=== PATIENT | female | born 1940 | race Caucasian/White ===

== ENCOUNTER 2018-11-11 15:28 | Inpatient (IN) | payer MEDICARE ==
[2018-11-11 16:26] VITALS: BMI 25.1
[2018-11-11] MEDS ORDERED: HYDROcodone/Acetaminophen 10/325 mg Tablet PO PRN (21:07)
[2018-11-11] MEDS ORDERED: Meloxicam 7.5 MG TAB PO PRN (21:11)
[2018-11-11] MEDS ORDERED: Alendronate Sodium 70 mg Tablet PO SCH (21:15)
[2018-11-11] MEDS ORDERED: Ferrous Gluconate 324 MG TAB PO SCH (21:45)
[2018-11-11] MEDS ORDERED: metFORMIN 500 MG TAB PO SCH (21:45)
[2018-11-11] MEDS ORDERED: Aspirin 81 mg Enteric Coated Tablet PO SCH (21:45)
[2018-11-11] MEDS ORDERED: Atorvastatin Calcium 10 MG TAB PO SCH (21:45)
[2018-11-11] MEDS: HYDROcodone/Acetaminophen 10/325 mg Tablet PO PRN (21:58)
[2018-11-12] MEDS ORDERED: Dextrose 5% in Water 1,000 ML IV PRN (00:03)
[2018-11-12] MEDS ORDERED: Dextrose 50% Abboject 50 ML SYRINGE SLOW IVP PRN (00:03)
--- NOTE | 2018-11-12 03:44 | HP ---
PRIMARY CARE PHYSICIAN: Out of town. REASON FOR ADMISSION: For skilled rehabilitation at [facility], status post left total knee arthroplasty. HISTORY OF PRESENT ILLNESS: Ms. Ida Don is a 78-year-old female with a history of degenerative joint disease to the left knee. The patient had presented to have an elective left total knee arthroplasty. Surgical procedure was done by Dr. Loaiza on November 08, 2018. Postoperatively, the patient tolerated the procedure well. She did not have any complications in the hospital. All her home medications were resumed and pain medicine Tylenol with hydrocodone as needed. The patient states she does live by herself at home and due to this reason, she was transferred to [facility] for skilled rehabilitation prior to discharge back to her home. Upon evaluation of the patient today, she denies any nausea, vomiting, chest pain, shortness of breath, or palpitations. The patient states she had a bowel movement today. She states knee pain is present, but well controlled with the pain medicines. The patient plans to discharge back to her home upon discharge in about 2 to 3 weeks. She needs to be in facility to start skilled rehabilitation. PAST MEDICAL HISTORY: Diabetes type 2, hypertension, degenerative joint disease , hyperlipidemia, osteoporosis. SOCIAL HISTORY: The patient denies alcohol use, illicit drug use, or tobacco use. ALLERGIES: NO KNOWN DRUG ALLERGIES. MEDICATIONS: 1. Tylenol 650 q.4 p.r.n. 2. [place] 10/325 one tab q.4 p.r.n. mild pain, 2 tabs q.4 p.r.n. moderate-to- severe pain. 3. Fosamax 70 daily. 4. Aspirin 81 mg p.o. b.i.d. 5. Lipitor 80 at bedtime. 6. Vitamin D3 one tablet daily. 7. Ferrous sulfate 324 p.o. b.i.d. 8. Meloxicam 7.5 p.o. daily p.r.n. pain. 9. Metformin 1000 at bedtime. 10. Dapagliflozin plus metformin 09/999 mg daily. 11. Victoza 1.8 mg daily. REVIEW OF SYSTEMS: GENERAL: The patient denies fever, denies weakness. Complains of gait instability due to recent surgery. HEENT: Denies any dysphagia, or blurry vision. CARDIOVASCULAR: Denies chest pain, shortness of breath, or palpitation. RESPIRATORY: Denies cough, or wheezing. ABDOMEN: Denies abdominal pain, nausea, vomiting, constipation, or diarrhea. SKIN: Denies any blisters or rashes. NEUROLOGIC: Denies any focal weakness to extremities, or focal deficits. PSYCHIATRIC: Denies anxiety or depression. MUSCULOSKELETAL: Complains of gait instability. CODE STATUS: The patient is a DNR. PHYSICAL EXAMINATION: VITAL SIGNS: Temperature 98.2, pulse 80, respiration 18, blood pressure 134/63 , O2 saturation 96% on room air. GENERAL: The patient is alert, awake, oriented x3. Lying comfortably in bed. No apparent distress. HEENT: Normocephalic, atraumatic. PERRL. Anicteric sclerae. Oral mucous membranes moist. NECK: Supple. No JVD. CHEST: Clear to auscultation bilaterally. HEART: S1 and S2. Regular rate and rhythm. No murmurs or gallops. ABDOMEN: Positive bowel sounds. Soft, nontender, nondistended. SKIN: Warm. Left knee with healing incisions, no drainage, clean, dry, intact. Mild surrounding erythema. Moderate tenderness, left leg mildly swollen. NEUROLOGIC: Cranial nerves 2 through 12 grossly intact. ASSESSMENT: 1. Gait instability. 2. Status post right total knee replacement. 3. Diabetes type 2. 4. Acute on chronic blood loss anemia. 5. Hypertension. 6. Osteoporosis. PLAN: The patient has been admitted to the [facility] for skilled rehabilitation and gait strengthening prior to discharge to her home. We will consult Physical Therapy for strengthening in order to gain modified independence with gait, and Occupational Therapy to help with activities of daily living prior to returning to her home. The patient is to follow up with orthopedic doctor, Dr. Loaiza on November 30. We will manage pain with [place] p.r.n. We will resume patient's home medication. We will place the patient on Accu-Cheks b.i.d. We will place the patient on aspirin 81 mg b.i.d. for DVT prophylaxis and Pepcid b.i.d. for GI prophylaxis. ESTIMATED LENGTH OF STAY: 2 to 3 weeks. DISCHARGE DISPOSITION: Back to her home. Job ID: [id number] [facility]
[2018-11-12] MEDS: Aspirin 81 mg Enteric Coated Tablet PO SCH ×2 (08:35→20:25)
[2018-11-12] MEDS: Ferrous Gluconate 324 MG TAB PO SCH ×2 (08:35→20:26)
[2018-11-12] MEDS: Dapagliflozin/Metformin Hcl [Xigduo Xr 5 Mg-1,000 Mg Tablet] PO SCH (08:36)
[2018-11-12] MEDS: Liraglutide [Victoza 3-Pak] 1.8 MG SC SCH (08:37)
[2018-11-12] MEDS: Acetaminophen 325 MG TAB PO PRN ×2 (08:42→21:42)
[2018-11-12] MEDS: Ondansetron ODT 4 MG TAB PO PRN (17:14)
[2018-11-12] MEDS: Atorvastatin Calcium 10 MG TAB PO SCH (20:25)
[2018-11-12] MEDS: metFORMIN 500 MG TAB PO SCH (20:26)
[2018-11-13] MEDS: HYDROcodone/Acetaminophen 10/325 mg Tablet PO PRN (05:05)
[2018-11-13] MEDS: Ferrous Gluconate 324 MG TAB PO SCH ×2 (08:55→20:02)
[2018-11-13] MEDS: Aspirin 81 mg Enteric Coated Tablet PO SCH ×2 (08:55→20:04)
[2018-11-13] MEDS: Liraglutide [Victoza 3-Pak] 1.8 MG SC SCH (08:56)
[2018-11-13] MEDS: Dapagliflozin/Metformin Hcl [Xigduo Xr 5 Mg-1,000 Mg Tablet] PO SCH (09:01)
[2018-11-13] MEDS: Ondansetron ODT 4 MG TAB PO PRN (18:18)
[2018-11-13] MEDS: Atorvastatin Calcium 10 MG TAB PO SCH (20:01)
[2018-11-13] MEDS: metFORMIN 500 MG TAB PO SCH (20:04)
[2018-11-13] MEDS: Acetaminophen 325 MG TAB PO PRN (21:20)
[2018-11-14] MEDS: Ferrous Gluconate 324 MG TAB PO SCH ×2 (08:05→20:39)
[2018-11-14] MEDS: Acetaminophen 325 MG TAB PO PRN ×2 (08:05→16:37)
[2018-11-14] MEDS: Aspirin 81 mg Enteric Coated Tablet PO SCH ×2 (08:05→20:39)
[2018-11-14] MEDS: Dapagliflozin/Metformin Hcl [Xigduo Xr 5 Mg-1,000 Mg Tablet] PO SCH (08:06)
[2018-11-14] MEDS: Liraglutide [Victoza 3-Pak] 1.8 MG SC SCH (08:06)
[2018-11-14] MEDS: metFORMIN 500 MG TAB PO SCH (20:38)
[2018-11-14] MEDS: Atorvastatin Calcium 10 MG TAB PO SCH (20:38)
[2018-11-15] MEDS: Ferrous Gluconate 324 MG TAB PO SCH ×2 (08:53→21:06)
[2018-11-15] MEDS: Aspirin 81 mg Enteric Coated Tablet PO SCH ×2 (08:53→21:06)
[2018-11-15] MEDS: Dapagliflozin/Metformin Hcl [Xigduo Xr 5 Mg-1,000 Mg Tablet] PO SCH (08:53)
[2018-11-15] MEDS: Liraglutide [Victoza 3-Pak] 1.8 MG SC SCH (08:54)
[2018-11-15] MEDS: Atorvastatin Calcium 10 MG TAB PO SCH (21:05)
[2018-11-15] MEDS: metFORMIN 500 MG TAB PO SCH (21:06)
[2018-11-15] MEDS: Acetaminophen 325 MG TAB PO PRN (21:10)
[2018-11-16 06:59] VITALS: BP 132/62; TEMP 96
[2018-11-16] MEDS: Dapagliflozin/Metformin Hcl [Xigduo Xr 5 Mg-1,000 Mg Tablet] PO SCH (09:16)
[2018-11-16] MEDS: Ferrous Gluconate 324 MG TAB PO SCH (09:17)
[2018-11-16] MEDS: Aspirin 81 mg Enteric Coated Tablet PO SCH (09:17)
[2018-11-16 09:21] LABS: Hemoglobin 11.1 g/dL (12.0-16.0); Mean Corpuscular HGB CONC 33.6 g/dL (32.0-36.0); Mean Corpuscular Hemoglobin 29.6 pg (27.0-31.0); Mean Corpuscular Volume 87.9 fL (78.0-98.0); RBC Distribution Width 12.3 % (11.5-14.5); Red Blood Cell (RBC) Count 3.76 mill/uL (4.20-5.40); White Blood Cell (WBC) Count 7.1 thou/uL (4.8-10.8)
[2018-11-16 09:22] LABS: #Eosinphils 0.2 thou/uL (0.0-0.7); #Monocytes 0.6 thou/uL (0.11-0.59); #Neutrophils 7.1 thou/uL (1.40-6.50); %Lymphocytes 14.9 % (21.0-51.0); %Monocytes 6.3 % (0.0-10.0); %Neutrophils 75.8 % (42.0-75.0); Mean Platelet Volume 6.4 fL (7.4-10.4); Platelet Count 211 thou/uL (130-400)
[2018-11-16 09:23] LABS: #Basophils 0.1 thou/uL (0.0-0.2); MDiff Complete? YES; Manual Diff?? NO
[2018-11-16] MEDS: Liraglutide [Victoza 3-Pak] 1.8 MG SC SCH (09:25)
[2018-11-16 09:27] LABS: BUN (Urea Nitrogen) 12 mg/dL (9.8-20.1); Calc. Creatinine Clearance 64 mL/min (70-130); Carbon Dioxide 26 mmol/L (23-31); Chloride 99 mmol/L (98-107); Estimated GFR-MDRD 80; Potassium 4.3 mmol/L (3.5-5.1); Sodium 138 mmol/L (136-145)
[2018-11-16 09:28] LABS: ALT (SGPT) 23 U/L (8-55); AST (SGOT) 26 U/L (5-34); Albumin 3.8 g/dL (3.4-4.8); Alkaline Phosphatase 86 U/L (40-150); Bilirubin, Total 0.5 mg/dL (0.2-1.2); Calcium 8.9 mg/dL (7.8-10.44); Globulin 2.8 g/dL (2.4-3.5); Glucose 215 mg/dL (83-110); Magnesium 1.5 mg/dL (1.6-2.6); Phosphorus 3.9 mg/dL (2.3-4.7); Protein, Total 6.6 g/dL (5.8-8.1)
[2018-11-16 09:31] LABS: Anion Gap 13 mmol/L (10-20)
[2018-11-16 09:41] LABS: #Lymphocytes 1.4 thou/uL (1.20-3.40)
--- NOTE | 2018-11-16 10:45 | RAD ---
2 VIEW CHEST: Date: 11/16/18 INDICATION: Weakness. Hypoxia. FINDINGS: Lungs appear clear of infiltrate. Vascular markings normal. Heart and mediastinum unremarkable. [place] us structures unremarkable. IMPRESSION: No acute process. POS: OFF
[2018-11-16 11:25] LABS: Bilirubin Negative (Negative); Blood, Urine Negative (Negative); Glucose, Urine (Dipstick) 500 mg/dL (Negative); Leukocyte Negative (Negative); Nitrite Negative (Negative); Protein, Urine (Dipstick) Negative (Neg-Trace)
[2018-11-16 11:26] LABS: Clarity Hazy (Clear)
[2018-11-16 11:34] LABS: Bacteria/HPF Rare-Few HPF (None Seen); RBC/HPF None Seen HPF (0-3); Squamous Epithelial 0-3 HPF (0-3); WBC/HPF 0-3 HPF (0-3)
--- NOTE | 2018-11-16 14:26 | CT ---
CTA CHEST WITH CONTRAST: 11/16/18 Multiple axial tomograms obtained through the chest with IV enhancement following angio protocol with multiplanar reconstruction and 3D post processing. INDICATIONS: Elevated D-dimer. Shortness of breath. Recent knee replacement surgery. Syncope. FINDINGS: There are bilateral pulmonary emboli seen. There are emboli seen in both main pulmonary arteries with emboli extending inferiorly in the interlobar arteries bilaterally and extending into bilateral lowe r lobe pulmonary arteries. There is emboli seen extending into upper lobe pulmonary arteries as well as right middle lobe arteries. The lungs show chronic lung parenchymal change. No focal infiltrate or consolidation. No effusion. Thoracic aorta unremarkable. Mediastinum: Unremarkable. Images through upper abdomen: Unremarkable. IMPRESSION: Extensive bilateral pulmonary emboli. Findings relayed to Dr. Qiu at time of this dictation. POS: OFF
[2018-11-16] MEDS ORDERED: Atorvastatin Calcium 40 MG TAB PO SCH (21:00)
== END 2018-11-16 14:45 | disposition short-term general hospital (02) | DRG 560 ==
LOC: MADMS 15:28
PROVIDERS: ADMIT Family Medicine; ATTEND Family Medicine
DX: Z47.1 Aftercare following joint replacement surgery (principal); D62 Acute posthemorrhagic anemia; E11.9 Type 2 diabetes mellitus without complications; I10 Essential (primary) hypertension; E78.5 Hyperlipidemia, unspecified; M81.0 Age-related osteoporosis without current pathological fracture; R26.81 Unsteadiness on feet; Z79.82 Long term (current) use of aspirin
CPT/HCPCS: 36416; 71046; 71275; 80053; 81001; 83735; 84100; 85025; 85379; 36415-59; Q0162

== ENCOUNTER 2018-11-21 13:47 | Inpatient (IN) | payer MEDICARE ==
[2018-11-21 14:07] VITALS: BMI 23.6
[2018-11-21] MEDS ORDERED: HYDROcodone/Acetaminophen 10/325 mg Tablet PO PRN (16:42)
[2018-11-21] MEDS ORDERED: Non-Formulary Item 1 EACH (Acetaminophen [Tylenol] 650 MG) PO PRN (16:42)
[2018-11-21] MEDS ORDERED: Ondansetron ODT 4 MG TAB PO PRN (16:42)
[2018-11-21] MEDS: Ferrous Gluconate 324 MG TAB PO SCH (17:18)
[2018-11-21] MEDS: Famotidine 20 MG TAB PO SCH (20:43)
[2018-11-21] MEDS: Atorvastatin Calcium 40 MG TAB PO SCH (20:43)
[2018-11-21] MEDS: Apixaban 5 MG TAB PO SCH (20:44)
[2018-11-21] MEDS: Aspirin 81 mg Enteric Coated Tablet PO SCH (20:44)
[2018-11-21] MEDS ORDERED: Apixaban 5 MG TAB PO SCH (21:00)
[2018-11-21] MEDS ORDERED: Non-Formulary Item 1 EACH (Atorvastatin Calcium [Atorvastatin Calcium] 80 MG) PO SCH (21:00)
[2018-11-22] MEDS: Acetaminophen 325 MG TAB PO PRN ×2 (00:26→19:19)
--- NOTE | 2018-11-22 01:00 | HP ---
PRIMARY CARE PHYSICIAN: Out of town. REASON FOR ADMISSION: For skilled rehabilitation at [facility], status post extensive bilateral PE, bilateral DVT, status post elective left total knee arthroplasty on November 08, 2018. HISTORY OF PRESENT ILLNESS: Ms. Prieto is a 78-year-old female with a history of degenerative joint disease to the left knee, who had elected to have a left total knee arthroplasty. This was done on November [address] Loaiza. Postoperatively, the patient tolerated the procedure well. She was subsequently transferred to [facility] on November 11 for skilled rehabilitation. The patient was discharged with aspirin 81 mg b.i.d. for DVT prophylaxis. The patient was tolerating PT nicely during hospitalization, but unfortunately, on November 16, she developed shortness of breath, tachycardia and irregular heartbeats during physical therapy. Blood work was done, noted to be unremarkable, but the patient's D-dimer was elevated at 5. A CAT scan of the chest was done and confirmed extensive bilateral pulmonary embolism. The patient was subsequently discharged from skilled rehabilitation and transferred to [facility] in [place] for adequate treatment. The patient in [place] did have ultrasound duplex of the lower extremity, which confirmed bilateral deep vein thromboses, and echocardiogram of the heart was done and showed some diastolic dysfunction with an EF of 60% to 65%. The patient was started on Eliquis 10 mg b.i.d. She was seen by Pre Sales Systems Engineer, Dr. Ozuna, who recommended 6 months of full dose anticoagulation and then switching out to prophylactic dose of anticoagulation for a year. The patient is to follow up with Hematology as an outpatient. The patient during hospitalization in [place], did not have any shortness of breath, palpitation, or dizzy spells. She did not have any respiratory issues. She tolerated the Eliquis fine and the decision was made to come back here to [facility] for confirmation of therapy. The patient was subsequently transferred to [place] today. Upon evaluation, she was happy to be back in rehab facility. She denies any chest pain, shortness of breath, fever, palpitations, or dizziness. She denies any pain or swelling to her lower extremity. PAST MEDICAL HISTORY: Diabetes type 2, hypertension, degenerative joint disease, hyperlipidemia and osteoporosis. SOCIAL HISTORY: Denies any tobacco use, alcohol use, or illicit drug use. ALLERGIES: NO KNOWN DRUG ALLERGIES. CODE STATUS: Chemical management only. MEDICATIONS: 1. Tylenol 650 p.r.n. q.4. 2. [place] 1 tab p.r.n. pain. 3. Fosamax 70 daily. 4. Aspirin 81 mg b.i.d. 5. Lipitor 80 at bedtime. 6. Ferrous sulfate 324 b.i.d. 7. Eliquis 10 mg p.o. b.i.d., then 5 mg p.o. b.i.d. scheduled. 8. Aspirin 81 mg b.i.d. 9. Pepcid 20 b.i.d. 10. Mobic 7.5 daily. 11. Glucophage 1000 daily. 12. Victoza 1.8 mg subcu daily. 13. Dapagliflozin/metformin 09/999 mg daily. REVIEW OF SYSTEMS: GENERAL: Denies fever, shortness of breath, or palpitations. Complains of gait instability due to recent surgery. HEENT: Denies dysphagia, or blurry vision. CARDIOVASCULAR: Denies chest pain, shortness of breath, or palpitation. RESPIRATORY: Denies cough, or wheezing. ABDOMEN: Denies abdominal pain, nausea, vomiting, constipation, or diarrhea. SKIN: Denies blisters, or rashes. NEUROLOGIC: Denies focal weakness to extremities or focal deficits. PSYCHIATRIC: Denies anxiety or depression. MUSCULOSKELETAL: Complains of gait instability. PHYSICAL EXAMINATION: VITAL SIGNS: Temperature 98, pulse 83, respirations 20, O2 saturation 98% on room air, blood pressure 146/67. GENERAL: The patient is alert, awake, oriented x3. Lying comfortably in bed. No apparent distress. HEENT: Normocephalic, atraumatic. PERRL. Anicteric sclerae. Oral mucous membranes moist. NECK: Supple. No JVD. CHEST: Clear to auscultation bilaterally. HEART: S1 and S2. Regular rate and rhythm. No murmurs, no gallops. ABDOMEN: Positive bowel sounds. Soft, nontender, nondistended. EXTREMITIES: Warm. Left knee with well-healing incisions. No drainage. No erythema. Dressing clean, dry, and intact. NEUROLOGIC: Cranial nerves 2 through 12 grossly intact. ASSESSMENT: 1. Gait instability. 2. Status post left total knee replacement. 3. Diabetes type 2. 4. Acute blood loss anemia. 5. Bilateral deep venous thrombosis. 6. Bilateral extensive pulmonary embolization. 7. Hypertension. PLAN: The patient will be admitted to [facility] for skilled rehabilitation and gait strengthening. Prior to discharge to her home, we will consult Physical Therapy for strengthening in order to gain modified independence with her gait. We will consult Occupational Therapy to help with activities of daily living prior to returning to her home. The patient to follow up with orthopedic surgeon, Dr. Loaiza on November 30. Pain management to be managed with [place] p.r.n. The patient will resume home medicines. We will continue Eliquis as ordered. The patient to follow up with Pulmonology, Dr. Ozuna as outpatient. We will continue Pepcid b.i.d. for GI prophylaxis. ESTIMATED LENGTH OF STAY: 2 to 3 weeks. DISPOSITION: Discharged back to her home. Job ID: [id number]
[2018-11-22 05:53] LABS: Eosinophils 7 % (0-10); Hemoglobin 10.2 g/dL (12.0-16.0); Lymphocytes 26 % (21-51); MDiff Complete? YES; Mean Corpuscular HGB CONC 33.4 g/dL (32.0-36.0); Mean Corpuscular Hemoglobin 29.1 pg (27.0-31.0); Mean Corpuscular Volume 87.2 fL (78.0-98.0); Monocytes 8 % (0-10); Neutrophil 54 % (42-75); Platelet Count 306 thou/uL (130-400); Platelet Morphology Comment Appears Adequate; RBC Morphology Normal; Reactive Lymphocytes 5 % (0-10); Red Blood Cell (RBC) Count 3.49 mill/uL (4.20-5.40)
[2018-11-22] MEDS: Famotidine 20 MG TAB PO SCH ×2 (08:41→20:58)
[2018-11-22] MEDS: Aspirin 81 mg Enteric Coated Tablet PO SCH ×2 (08:41→20:58)
[2018-11-22] MEDS: Meloxicam 7.5 MG TAB PO SCH (08:41)
[2018-11-22] MEDS: Ferrous Gluconate 324 MG TAB PO SCH ×2 (08:41→17:20)
[2018-11-22] MEDS: Apixaban 5 MG TAB PO SCH ×2 (08:41→20:58)
[2018-11-22] MEDS: METFORMIN HCL PO SCH (08:44)
[2018-11-22] MEDS: DAPAGLIFLOZIN PO SCH (08:44)
[2018-11-22] MEDS: Liraglutide [Victoza] 1.8 MG SC SCH (08:46)
[2018-11-22] MEDS ORDERED: [UNRECOGNIZED DRUG - OTHER] PO SCH (09:00)
[2018-11-22] MEDS ORDERED: METFORMIN HCL PO SCH (09:00)
[2018-11-22] MEDS ORDERED: DAPAGLIFLOZIN PO SCH (09:00)
[2018-11-22] MEDS: metFORMIN 500 MG TAB PO SCH (17:20)
[2018-11-22] MEDS: Atorvastatin Calcium 40 MG TAB PO SCH (20:58)
[2018-11-23] MEDS: Acetaminophen 325 MG TAB PO PRN (02:25)
[2018-11-23] MEDS: Liraglutide [Victoza] 1.8 MG SC SCH (08:43)
[2018-11-23] MEDS: Meloxicam 7.5 MG TAB PO SCH (08:46)
[2018-11-23] MEDS: Ferrous Gluconate 324 MG TAB PO SCH ×2 (08:46→17:08)
[2018-11-23] MEDS: Apixaban 5 MG TAB PO SCH ×2 (08:46→21:24)
[2018-11-23] MEDS: Aspirin 81 mg Enteric Coated Tablet PO SCH ×2 (08:46→21:25)
[2018-11-23] MEDS: Famotidine 20 MG TAB PO SCH ×2 (08:46→21:25)
[2018-11-23] MEDS: DAPAGLIFLOZIN PO SCH (08:47)
[2018-11-23] MEDS: METFORMIN HCL PO SCH (08:47)
[2018-11-23] MEDS: metFORMIN 500 MG TAB PO SCH (17:08)
[2018-11-23] MEDS: Atorvastatin Calcium 40 MG TAB PO SCH (21:25)
[2018-11-24 06:42] VITALS: BP 147/64; TEMP 96.9
[2018-11-24] MEDS: Apixaban 5 MG TAB PO SCH (08:39)
[2018-11-24] MEDS: Famotidine 20 MG TAB PO SCH (08:39)
[2018-11-24] MEDS: Ferrous Gluconate 324 MG TAB PO SCH ×2 (08:39→16:26)
[2018-11-24] MEDS: Aspirin 81 mg Enteric Coated Tablet PO SCH (08:39)
[2018-11-24] MEDS: Meloxicam 7.5 MG TAB PO SCH (08:40)
[2018-11-24] MEDS: METFORMIN HCL PO SCH (08:40)
[2018-11-24] MEDS: DAPAGLIFLOZIN PO SCH (08:40)
[2018-11-24] MEDS: Liraglutide [Victoza] 1.8 MG SC SCH (08:41)
[2018-11-24] MEDS: metFORMIN 500 MG TAB PO SCH (16:26)
[2018-11-24] MEDS ORDERED: Apixaban 5 MG TAB PO SCH (21:00)
--- NOTE | 2018-11-25 06:54 | DIS ---
DATE OF ADMISSION: 11/21/2018 DATE OF DISCHARGE: 11/24/2018 DISCHARGING PHYSICIAN: Dick iQu MD DISCHARGE DISPOSITION: To home. DISCHARGE MEDICATIONS: Tylenol 650 q.4 p.r.n., Fosamax 70 daily, aspirin 81 mg b.i.d., Eliquis 10 mg b.i.d. till November 26 and then 5 mg b.i.d., Pepcid 20 b.i.d., Mobic 7.5 daily, metformin 1000 daily, Victoza 1.8 subcu daily, dapagliflozin/metformin 09/999 daily, ferrous sulfate 324 b.i.d., Lipitor 80 at bedtime. DISCHARGE INSTRUCTIONS: Follow up with PCP within 1 week. Start outpatient physical therapy at [facility]. Follow up with merchandising stock associate in 6 months. Follow up with orthopedic doctor in a month. BRIEF HOSPITAL COURSE: Ms. Prieto is a 78-year-old female with a history of degenerative joint disease. The patient had an elective left total knee arthroplasty on November 08, which was done by Dr. Loaiza. She tolerated the procedure well and was subsequently transferred to [facility] on November 11 for acute rehabilitation. She was discharged on aspirin 81 mg b.i.d. for DVT prophylaxis, which she continued doing therapy. Unfortunately, November 16, the patient complained of shortness of breath, irregular heart beat, and just nausea. D-dimer was elevated at 515. Angio of the chest confirmed extensive bilateral pulmonary emboli. The patient was subsequently transferred back to [facility] in [place] for advanced care. She was evaluated with pulmonology. She had ultrasound of lower extremities and that confirmed bilateral DVT. She had an echocardiogram which was normal. The patient was started on Eliquis 10 mg b.i.d. She was seen by Dr. Ozuna, who recommended 6 months of full course anticoagulation. The patient has progressed nicely and denies anymore shortness of breath during hospitalization in [place]. She was subsequently transferred back on November 21, 2018. The patient participated in physical therapy. She tolerated therapy well. On the day of discharge, she was able to ambulate 300 feet with a rolling walker. The patient made a decision to go home. She does live by herself, but she states family member only specifically will be staying with her for a little while. She opted to have outpatient physical therapy instead of home health. The patient was discharged home with family members in stable condition. DISCHARGE VITAL SIGNS: 96.9 temperature, pulse 81, respirations 14, blood pressure 147/64, O2 saturation 94% on room air. Job ID: [id number]
[2018-11-26] MEDS ORDERED: Apixaban 5 MG TAB PO SCH (21:00)
== END 2018-11-24 17:25 | disposition home or self-care (01) | DRG 560 ==
LOC: MADMS 13:47
PROVIDERS: ADMIT Family Medicine; ATTEND Family Medicine
DX: Z47.1 Aftercare following joint replacement surgery (principal); D62 Acute posthemorrhagic anemia; R26.9 Unspecified abnormalities of gait and mobility; E11.9 Type 2 diabetes mellitus without complications; I10 Essential (primary) hypertension; E78.5 Hyperlipidemia, unspecified; M81.0 Age-related osteoporosis without current pathological fracture; Z96.652 Presence of left artificial knee joint; Z86.718 Personal history of other venous thrombosis and embolism; Z86.711 Personal history of pulmonary embolism; Z79.01 Long term (current) use of anticoagulants
CPT/HCPCS: 36415; 85007; 85027

== ENCOUNTER 2020-08-29 15:26 | Inpatient (IN) | payer MEDICARE ==
[2020-08-29 17:39] VITALS: BMI 27.8
[2020-08-29] MEDS ORDERED: Ondansetron ODT 4 MG TAB PO PRN (21:10)
[2020-08-29] MEDS ORDERED: HYDROcodone/Acetaminophen 10/325 mg Tablet PO PRN (21:37)
[2020-08-29] MEDS ORDERED: Atorvastatin Calcium 40 MG TAB PO SCH (22:30)
[2020-08-29] MEDS ORDERED: Famotidine 20 MG TAB PO SCH (22:30)
[2020-08-29] MEDS ORDERED: Aspirin 81 mg Enteric Coated Tablet PO SCH (22:30)
[2020-08-29] MEDS ORDERED: Apixaban 2.5 MG TAB PO SCH (22:30)
[2020-08-30] MEDS: Famotidine 20 MG TAB PO SCH ×2 (08:27→20:12)
[2020-08-30] MEDS: Apixaban 2.5 MG TAB PO SCH ×2 (08:28→20:13)
[2020-08-30] MEDS: Cholecalciferol 1,000 UNITS (25 MCG) TAB PO SCH (08:28)
[2020-08-30] MEDS ORDERED: Aspirin 81 mg Enteric Coated Tablet PO SCH (09:00)
[2020-08-30] MEDS: HYDROcodone/Acetaminophen 10/325 mg Tablet PO PRN (16:56)
[2020-08-30] MEDS: Atorvastatin Calcium 40 MG TAB PO SCH (20:12)
[2020-08-30] MEDS ORDERED: Dextrose 50% Abboject 50 ML SYRINGE IVP PRN (21:30)
[2020-08-30] MEDS: HumaLOG 300 UNITS/3 ML VIAL SC PRN (21:30)
[2020-08-30] MEDS ORDERED: Dextrose 5% in Water 1,000 ML IV PRN (21:30)
[2020-08-31] MEDS: HYDROcodone/Acetaminophen 10/325 mg Tablet PO PRN ×2 (08:11→22:40)
[2020-08-31] MEDS: Famotidine 20 MG TAB PO SCH ×2 (08:11→20:16)
[2020-08-31] MEDS: Apixaban 2.5 MG TAB PO SCH ×2 (08:11→20:16)
[2020-08-31] MEDS: Cholecalciferol 1,000 UNITS (25 MCG) TAB PO SCH (08:12)
[2020-08-31] MEDS: Atorvastatin Calcium 40 MG TAB PO SCH (20:16)
[2020-09-01] MEDS: Famotidine 20 MG TAB PO SCH ×2 (08:16→20:27)
[2020-09-01] MEDS: Cholecalciferol 1,000 UNITS (25 MCG) TAB PO SCH (08:17)
[2020-09-01] MEDS: Apixaban 2.5 MG TAB PO SCH ×2 (08:17→20:27)
[2020-09-01] MEDS: HumaLOG 300 UNITS/3 ML VIAL SC PRN ×2 (13:13→21:43)
[2020-09-01] MEDS: Acetaminophen 325 MG TAB PO PRN (13:19)
[2020-09-01] MEDS: Atorvastatin Calcium 40 MG TAB PO SCH (20:28)
[2020-09-02] MEDS: Acetaminophen 325 MG TAB PO PRN (02:44)
[2020-09-02] MEDS: Cholecalciferol 1,000 UNITS (25 MCG) TAB PO SCH (08:33)
[2020-09-02] MEDS: Apixaban 2.5 MG TAB PO SCH ×2 (08:33→21:08)
[2020-09-02] MEDS: Famotidine 20 MG TAB PO SCH ×2 (08:36→21:08)
[2020-09-02] MEDS: HumaLOG 300 UNITS/3 ML VIAL SC PRN ×2 (11:42→16:47)
[2020-09-02] MEDS: traMADol HCl 50 MG TAB PO PRN (15:26)
[2020-09-02] MEDS: metFORMIN XR 500 MG TAB PO SCH (16:45)
[2020-09-02] MEDS: Dapagliflozin/Metformin Hcl [Xigduo Xr 5 Mg-1,000 Mg Tablet] PO SCH (17:12)
[2020-09-02] MEDS: Liraglutide [Victoza 3-Pak] 0.6 MG/0.1 ML Pen.Injctr SC SCH (17:13)
[2020-09-02] MEDS: Atorvastatin Calcium 40 MG TAB PO SCH (21:08)
[2020-09-03] MEDS: Ibuprofen 600 MG TAB PO PRN (05:52)
[2020-09-03] MEDS: Liraglutide [Victoza 3-Pak] 0.6 MG/0.1 ML Pen.Injctr SC SCH ×3 (07:36→07:39)
[2020-09-03] MEDS: Dapagliflozin/Metformin Hcl [Xigduo Xr 5 Mg-1,000 Mg Tablet] PO SCH ×2 (07:37→07:40)
[2020-09-03] MEDS: Cholecalciferol 1,000 UNITS (25 MCG) TAB PO SCH (08:07)
[2020-09-03] MEDS: Famotidine 20 MG TAB PO SCH ×2 (08:07→21:08)
[2020-09-03] MEDS: metFORMIN XR 500 MG TAB PO SCH ×2 (08:07→16:54)
[2020-09-03] MEDS: Apixaban 2.5 MG TAB PO SCH ×2 (08:07→21:07)
[2020-09-03] MEDS: HumaLOG 300 UNITS/3 ML VIAL SC PRN ×3 (08:33→16:54)
[2020-09-03] MEDS: Empagliflozin 10 MG TAB PO SCH (10:53)
[2020-09-03] MEDS: traMADol HCl 50 MG TAB PO PRN (14:23)
[2020-09-03] MEDS ORDERED: traMADol HCl 50 MG TAB PO PRN (17:26)
[2020-09-03] MEDS: Atorvastatin Calcium 40 MG TAB PO SCH (21:07)
[2020-09-04] MEDS: Cholecalciferol 1,000 UNITS (25 MCG) TAB PO SCH (09:18)
[2020-09-04] MEDS: Apixaban 2.5 MG TAB PO SCH ×2 (09:18→20:43)
[2020-09-04] MEDS: Empagliflozin 10 MG TAB PO SCH (09:18)
[2020-09-04] MEDS: Famotidine 20 MG TAB PO SCH ×2 (09:18→20:43)
[2020-09-04] MEDS: metFORMIN XR 500 MG TAB PO SCH ×2 (09:18→17:24)
[2020-09-04] MEDS: HumaLOG 300 UNITS/3 ML VIAL SC PRN (12:06)
[2020-09-04] MEDS: Ibuprofen 600 MG TAB PO PRN (12:41)
[2020-09-04 19:40] VITALS: TEMP 98.6
[2020-09-04] MEDS: Atorvastatin Calcium 40 MG TAB PO SCH (20:43)
[2020-09-04] MEDS: Acetaminophen 325 MG TAB PO PRN (22:12)
[2020-09-05] MEDS: metFORMIN XR 500 MG TAB PO SCH (09:36)
[2020-09-05] MEDS: Cholecalciferol 1,000 UNITS (25 MCG) TAB PO SCH (09:37)
[2020-09-05] MEDS: Empagliflozin 10 MG TAB PO SCH (09:37)
[2020-09-05] MEDS: Famotidine 20 MG TAB PO SCH (09:37)
[2020-09-05] MEDS: Apixaban 2.5 MG TAB PO SCH (09:37)
[2020-09-05] MEDS: HumaLOG 300 UNITS/3 ML VIAL SC PRN ×2 (09:38→13:13)
[2020-09-05 10:38] VITALS: BP 147/71
== END 2020-09-05 14:35 | disposition home or self-care (01) | DRG 560 ==
LOC: MADMS 16:45
PROVIDERS: ADMIT Family Medicine; ATTEND Family Medicine
DX: Z47.1 Aftercare following joint replacement surgery (principal); D62 Acute posthemorrhagic anemia; E78.5 Hyperlipidemia, unspecified; I10 Essential (primary) hypertension; M81.0 Age-related osteoporosis without current pathological fracture; R26.89 Other abnormalities of gait and mobility; Z96.652 Presence of left artificial knee joint; E11.9 Type 2 diabetes mellitus without complications; Z86.711 Personal history of pulmonary embolism; Z86.718 Personal history of other venous thrombosis and embolism; Z90.710 Acquired absence of both cervix and uterus; Z79.01 Long term (current) use of anticoagulants
CPT/HCPCS: 36416; J1815